=== PATIENT | female | born 1960 | race Asian ===

== ENCOUNTER 2021-04-25 17:47 | Emergency (ER) | payer OTHER ==
[2021-04-25 18:21] VITALS: BMI 30.8
[2021-04-25] MEDS ORDERED: CASIRIVIMAB/IMDEVIMAB 10 ML in SODIUM CHLORIDE 100 ML IVPB ONE (19:22)
[2021-04-25 20:52] LABS: HEMATOCRIT 39.8 % (32.4-45.2); HEMOGLOBIN 13.7 GM/dL (10.7-15.3); MCH 30.2 pg (25.7-33.7); MCHC 34.4 g/dl (32.0-36.0); MEAN CELL VOLUME 87.7 fl (80-96); MEAN PLT VOLUME 8.3 fl (7.5-11.1); PLATELET COUNT 285 10^3/uL (134-434); RBC 4.54 M/mm3 (3.60-5.2); RDW 13.3 % (11.6-15.6)
[2021-04-25 21:09] LABS: CALCIUM 9.4 mg/dL (8.5-10.1)
[2021-04-25 21:10] LABS: ALBUMIN 3.8 g/dl (3.4-5.0); BLOOD UREA NITROGEN 11.5 mg/dL (7-18)
[2021-04-25 21:13] LABS: CREATININE 0.9 mg/dL (0.55-1.3)
[2021-04-25 22:04] VITALS: BP 165/71; PULSE 77; TEMP 98.3
== END 2021-04-25 23:16 | disposition home or self-care (01) ==
LOC: JCOVINFU 17:47
DX: U07.1 COVID-19 (principal)
CPT/HCPCS: 36415; 71046-TC-FY; 80053; 85027; 96365; 99284-25; Q0240